=== PATIENT | male | born 1990 | race Caucasian/White ===

== ENCOUNTER 2017-04-28 02:05 | Emergency (ER) | payer MEDICAID ==
--- NOTE | ~2017-04-28 | ER ---
PATIENT'S NAME: SUYAPA [facility]LLER [facility] AGE: 27 Y [address] ROOM: [place] [address] LOCATION: [facility] ADMIT DATE: 04/28/2017 ER/Outpatient Report DISCHARGE DATE: 04/28/2017 FAMILY PHYSICIAN: Ferny Wood MD ATTENDING PHYSICIAN: Lv Andre Time of Arrival: 0203 hours. Time of Evaluation: 0203 hours. CHIEF COMPLAINT: Chest pain. HISTORY OF PRESENT ILLNESS: The patient is a 27-year-old male, who presents to the emergency department today with a chief complaint of chest pain. He reports it started about 1 hour prior to arrival while lying in bed. He denies any nausea or vomiting. No shortness of breath. No diaphoresis. It is in the left side of his chest. It does radiate around. He reports stabbing type pain, tightness. It is currently 5/10 in severity. PAST MEDICAL HISTORY: "Minor heart attack." PAST SURGICAL HISTORY: Tonsils. SOCIAL HISTORY: The patient quit smoking a month ago. Denies any alcohol or illicit drug use. ALLERGIES: MUSHROOMS. MEDICATIONS: None. PRIMARY CARE DOCTOR: Dr. Ferny Wood. REVIEW OF SYSTEMS: All systems are reviewed by myself and are negative with the exception of those discussed in the HPI and past medical history. PHYSICAL EXAMINATION: VITAL SIGNS: Weight 167 kg, blood pressure 151/89, pulse 85, respiratory rate 16, temperature 97.8, oxygen saturation 94% on room air. PATIENT'S NAME: SUYAPA [facility]UELLER [facility] AGE: 27 Y [address] ROOM: [place] [address] LOCATION: [facility] ADMIT DATE: 04/28/2017 ER/Outpatient Report DISCHARGE DATE: 04/28/2017 FAMILY PHYSICIAN: Ferny Wood MD ATTENDING PHYSICIAN: Lv Andre GENERAL: The patient is a 27-year-old male, obese, in no acute distress at this time. HEENT: Head: Normocephalic, atraumatic. Pupils are equal, round, and reactive to light. Extraocular motions are intact. Mucous membranes are moist. NECK: Supple. There is no nuchal rigidity. CARDIOVASCULAR: Regular rate and rhythm. No murmurs, rubs, or gallops. LUNGS: Clear to auscultation bilaterally. No wheezes, rales, or rhonchi. ABDOMEN: Soft, nontender, and nondistended. No rebound, rigidity, or guarding. MUSCULOSKELETAL: The patient moves all 4 extremities. SKIN: Warm and dry. There are no rashes or lesions noted. LABORATORY DATA AND X-RAYS: EKG is obtained, is interpreted by myself at 0211 hours shows sinus rhythm with a rate of 74, normal axis, normal interval. No ST elevation, ST depression, or T-wave inversions. A 2-view chest x-ray is obtained, is interpreted by myself shows no acute process. CBC is unremarkable. CMP is unremarkable. LFTs normal. Magnesium is normal. Cardiac enzymes are normal. Coags are normal. IMPRESSION: 1. Chest pain, unclear etiology. 2. Initial visit. EMERGENCY DEPARTMENT COURSE: The patient was brought back to the examination room. Seen and evaluated by myself. Laboratory analysis and imaging are obtained as described above. The patient did receive aspirin prior to arrival by EMS. EMS also did give him nitroglycerin x2, which made no significant changes. They gave a GI cocktail with some improvement in the patient's symptoms. I have discussed with the patient, I recommend close followup with Dr. Ferny Wood in 1 to 2 days for re-evaluation. I have discussed return to care instructions including worsening symptoms or any other concerns to return to the emergency department as soon as possible. The patient is agreeable without further questions at this time. DISPOSITION,: The patient discharged home in good condition. LV ANDRE DO PATIENT'S NAME: SUYAPA [facility]LLER [facility] AGE: 27 Y [address] ROOM: [place] [address] LOCATION: [facility] ADMIT DATE: 04/28/2017 ER/Outpatient Report DISCHARGE DATE: 04/28/2017 FAMILY PHYSICIAN: Ferny Wood MD ATTENDING PHYSICIAN: Lv Andre/darrell /[id number] d: 04/28/17 0406 t: 04/29/17 0544, OUTPATIENT REPORT
[2017-04-28 02:28] LABS: BASOPHIL # 0.1 K/uL (0.0-0.2); BASOPHIL % 0.6 %; EOSINOPHIL # 0.3 K/uL (0.0-0.5); EOSINOPHIL % 3.8 %; HEMATOCRIT 45.9 % (37.0-53.0); HEMOGLOBIN 15.7 g/dL (12.0-17.0); IMMATURE GRANULOCYTE % 0.3 %; LYMPHOCYTE # 4.1 K/uL (0.8-4.0); LYMPHOCYTE % 45.9 %; MCH 31.6 pg (27.0-34.0); MCHC 34.2 gm/dL (32.0-36.5); MCV 92.4 fl (83.0-98.0); MONOCYTE # 0.5 K/uL (0.0-1.0); MONOCYTE % 6.1 %; MPV 9.5 fl (9.4-12.4); NEUTROPHIL # (ANC) 3.8 K/uL (1.4-9.0); NEUTROPHIL % 43.3 %; NRBC % 0 /100WBC (0-0.00); PLATELET COUNT 176 K/uL (150-450); RBC 4.97 M/uL (4.00-6.00); RDW-CV 13.2 % (11.9-14.6); WBC 8.8 K/uL (4.0-11.0)
[2017-04-28 02:38] LABS: INR - (THERAPEUTIC) 0.97 (0.92-1.07); PROTIME 10.2 SECONDS (9.8-11.4); PTT 32 SECONDS (25-32)
[2017-04-28 02:46] LABS: ALBUMIN 3.6 gm/dL (3.5-5.0); ALK PHOS 83 IU/L (33-138); ALT 25 IU/L (12-78); ANION GAP 10.8 (10.0-19.0); AST 19 IU/L (10-40); BLOOD UREA NITROGEN 16 mg/dL (6-24); CALCIUM 8.4 mg/dL (8.5-10.5); CHLORIDE 108 mMol/L (96-110); CO2 26 mMol/L (22-32); CPK 251 IU/L (35-332); MAGNESIUM 2.3 mg/dL (1.8-2.6); POTASSIUM 3.8 mMol/L (3.7-5.1); SODIUM 141 mMol/L (135-145); TOTAL BILIRUBIN 0.4 mg/dL (0.0-1.5); TOTAL PROTEIN 6.8 g/dL (6.0-8.4)
== END 2017-04-28 03:06 | disposition disaster alternative care site (69) ==
LOC: GMED 02:05
PROVIDERS: Emergency Medicine
DX: R07.9 Chest pain, unspecified (principal); Z98.890 Other specified postprocedural states; Z88.8 Allergy status to other drugs, medicaments and biological substances; Z87.891 Personal history of nicotine dependence

== ENCOUNTER → 2017-04-28 | Outpatient (CLI) | payer MEDICAID | END | disposition disaster alternative care site (69) | LOC: GAMB 01:42 | DX: R07.9 Chest pain, unspecified (principal) | CPT/HCPCS: A0425; A0427 ==